=== PATIENT | female | born 1985 | race Caucasian/White ===

== ENCOUNTER 2024-08-29 17:23 | Day surgery (SDC) | payer OTHER ==
[2024-08-29 17:58] VITALS: RESP 18; TEMP 98.6
[2024-08-29] MEDS: IRON SUCROSE INJECTION 200 MG in SODIUM CHLORIDE 100 ML IVPB ONE (18:20)
[2024-08-29 19:10] VITALS: BP 144/81; PULSE 82
== END 2024-08-29 19:10 | disposition home or self-care (01) ==
LOC: FINFUSION 17:23 → FM/S 17:23 → FINFUSION 19:10
PROVIDERS: ATTEND Internal Medicine
PROC: 3E033GC Introduction of Other Therapeutic Substance into Peripheral Vein, Percutaneous Approach (ICD-10-PCS; principal; 2024-08-29)
DX: D50.9 Iron deficiency anemia, unspecified (principal)
CPT/HCPCS: 96365; J1756

== ENCOUNTER 2024-08-30 17:23 | Day surgery (SDC) | payer OTHER ==
[2024-08-30] MEDS: IRON SUCROSE INJECTION 200 MG in SODIUM CHLORIDE 100 ML IVPB ONE (18:16)
[2024-08-30 19:36] VITALS: BP 118/77; PULSE 73; RESP 18; TEMP 98.9
== END 2024-08-30 19:30 | disposition home or self-care (01) ==
LOC: FINFUSION 17:23 → FM/S 17:29 → FINFUSION 19:30
PROVIDERS: ATTEND Internal Medicine
DX: D50.9 Iron deficiency anemia, unspecified (principal)
CPT/HCPCS: 96365; J1756

== ENCOUNTER 2024-08-31 17:28 | Day surgery (SDC) | payer OTHER ==
[2024-08-31] MEDS: IRON SUCROSE INJECTION 200 MG in SODIUM CHLORIDE 100 ML IVPB ONE (17:54)
[2024-08-31 19:24] VITALS: BP 126/86; PULSE 79; RESP 16; TEMP 98.3
== END 2024-08-31 19:24 | disposition home or self-care (01) ==
LOC: FINFUSION 17:28 → FM/S 17:29 → FINFUSION 19:24
PROVIDERS: ATTEND Internal Medicine
PROC: 3E033GC Introduction of Other Therapeutic Substance into Peripheral Vein, Percutaneous Approach (ICD-10-PCS; principal; 2024-08-31)
DX: D50.9 Iron deficiency anemia, unspecified (principal)
CPT/HCPCS: 96365; J1756

== ENCOUNTER 2024-11-15 06:34 | Day surgery (SDC) | payer OTHER ==
[2024-11-14 12:50] VITALS: BMI 44.9
[2024-11-15 08:51] VITALS: TEMP 97.6
[2024-11-15 09:34] VITALS: BP 118/72; PULSE 98; RESP 18
== END 2024-11-15 09:45 | disposition home or self-care (01) ==
LOC: JASU-ENDO 06:34
PROVIDERS: ATTEND Internal Medicine Gastroenterology
PROC: 0DB78ZX Excision of Stomach, Pylorus, Via Natural or Artificial Opening Endoscopic, Diagnostic (ICD-10-PCS; 2024-11-15)
PROC: 0DB68ZX Excision of Stomach, Via Natural or Artificial Opening Endoscopic, Diagnostic (ICD-10-PCS; 2024-11-15)
PROC: 0DB98ZX Excision of Duodenum, Via Natural or Artificial Opening Endoscopic, Diagnostic (ICD-10-PCS; principal; 2024-11-15 08:00)
DX: Z12.11 Encounter for screening for malignant neoplasm of colon (principal); D50.9 Iron deficiency anemia, unspecified; K57.30 Diverticulosis of large intestine without perforation or abscess without bleeding; K29.50 Unspecified chronic gastritis without bleeding; K44.9 Diaphragmatic hernia without obstruction or gangrene; K25.9 Gastric ulcer, unspecified as acute or chronic, without hemorrhage or perforation; Z80.0 Family history of malignant neoplasm of digestive organs
CPT/HCPCS: 81025; 88305-TC; 88342-TC